=== PATIENT | male | born 1945 | race African-American/Black ===

== ENCOUNTER 2019-08-28 20:47 | Emergency (ER) | payer MEDICARE, OTHER ==
[~2019-08-28] VITALS: Ht 172.7 cm; Wt 58.1 kg
[~2019-08-28 20:47] MED LIST: ALLO100T PO; ATOR20TA PO; CARI350T22 PO; CARV25TA55 PO; CHOL20007 PO; CLON0.2T PO; FERR-20 PO; LEVO500T21 PO; LINE1TAB6 PO; NITR0.4S29 SL; PHE100C PO; TAMS0.4C36 PO; TEMA15CA91 PO; TRAZ50TA2 PO
[2019-08-28 22:49] VITALS: BP 147/97
== END 2019-08-29 02:04 | disposition home or self-care (01) ==
LOC: EDBD 20:47 → ER 20:50
DX: S93.401A Sprain of unspecified ligament of right ankle, initial encounter (principal); S00.03XA Contusion of scalp, initial encounter; I25.10 Atherosclerotic heart disease of native coronary artery without angina pectoris; E78.5 Hyperlipidemia, unspecified; I10 Essential (primary) hypertension; I25.2 Old myocardial infarction; E07.9 Disorder of thyroid, unspecified; Z79.899 Other long term (current) drug therapy; Z98.61 Coronary angioplasty status; Z86.73 Personal history of transient ischemic attack (TIA), and cerebral infarction without residual deficits; Z66 Do not resuscitate; W05.0XXA Fall from non-moving wheelchair, initial encounter; Y93.89 Activity, other specified; Y99.8 Other external cause status; Y92.89 Other specified places as the place of occurrence of the external cause
CPT/HCPCS: 70450; 73610; 73630